=== PATIENT | female | born 1945 | race Caucasian/White ===

== ENCOUNTER → 2018-05-29 11:25 | Outpatient (CLI) | payer OTHER, SELFPAY ==
--- NOTE | 2018-05-29 | DI.MG.S_ITS ---
BILATERAL DIGITAL SCREENING MAMMOGRAM 3D/2D WITH CAD: 05/29/2018 CLINICAL: Routine screening. Comparison is made to exams dated: 11/09/2015 mammogram, 12/26/2012 mammogram, and 05/10/2011 mammogram - [facility]. There are scattered fibroglandular elements in both breasts. Current study was also evaluated with a Computer Aided Detection (CAD) system. No significant masses, calcifications, or other findings are seen in either breast. There has been no significant interval change. IMPRESSION: NEGATIVE There is no mammographic evidence of malignancy. A 1 year screening mammogram is recommended. This exam was interpreted at Station ID: [id number]. NOTE: For mammograms, a report in lay terms will be sent to the patient. Approximately 15% of breast malignancies will not be visualized mammographically. In the management of a palpable breast mass, a negative mammogram must not discourage biopsy of a clinically suspicious lesion. Electronically Signed By: Meliton hernandez/daphne:05/29/2018 17:11:52 letter sent: Normal Exam ACR BI-RADS Category 1: Negative 3341F
== END ==
PROVIDERS: PCP Family Medicine; Visit Provider Family Medicine
DX: Z12.31 Encounter for screening mammogram for malignant neoplasm of breast (principal)
CPT/HCPCS: 77063; 77067

== ENCOUNTER 2019-01-23 11:58 | Day surgery (SDC) | payer OTHER, SELFPAY ==
[2019-01-23] VITALS (7 sets, daily range): BP systolic 112–138; BP diastolic 37–82; PULSE 63–85; RESP 12–16; TEMP 36.1–36.6; O2SAT 93–97; BMI 24.0
--- NOTE | 2019-01-23 | PATH_ITS ---
[facility] Accession Number: [id number] . 01 Material submitted: . sigmoid colon - SIGMOID POLYP . 01 Clinical history: . SCREENING COLONOSCOPY . 02 Diagnosis: Sigmoid Colon, Polyp: Hyperplastic polyp. [facility]/01/24/2019 . 02 Electronically signed: . Camron Reeder MD, PhD, Pathologist NPI- [id number] . 01 Gross description: . SIGMOID POLYP: Received in formalin is 1 fragment(s) of acevedo, soft tissue measuring 0.3 x 0.2 x 0.2 cm which is entirely submitted and submitted entirely in 1 cassette(s) /[facility] /[facility] . 02 Pathologist provided ICD-10: K63.5 . 02 CPT . 386778 Performed at: 01 [facility] [address] [id number] MD Meliton Fish MD Phone: [phone] Performed at: 02 [facility] [address] [place], [place] [id number] MD Karen Thompson MD Phone: [phone]
--- NOTE | 2019-01-23 12:28 | PM.HP.1 ---
History of Present Illness Date Patient Seen: 01/23/19 Time Patient Seen: 12:40 Chief complaint: 12305 SCREENING COLONOSCOPY Narrative: 73yo F for low risk screening colonoscopy. No family history, no alarm symptoms. Last scope 10-12 years ago with no abnormal findings. Meds Home Medications Medication Instructions Recorded Confirmed Type No Known Home Medications 01/23/19 01/23/19 History Allergies Allergy/AdvReac Type Severity Reaction Status Date / Time No Known Drug Allergies Allergy Verified 01/23/19 12:18 Review of Systems Constitutional Constitutional: Reports as per HPI Exam Narrative Exam Narrative: AAO, NAD EOMI, MMM, no scleral icterus unlabored RA soft, nt/nd MAEW visible skin dry and intact Assessment & Plan (1) Screening for colorectal cancer: Current visit: Yes Status: Acute Assessment & Plan narrative: - plan for low risk screening colonoscopy --> all R/B/A discussed and pt wishes to proceed
[2019-01-23] MEDS: SODIUM CHLORIDE 0.9% 1,000 ML 200 ML IV (12:35)
[2019-01-23] MEDS: MIDAZOLAM 5 MG/5 ML VIAL IV (13:15)
[2019-01-23] MEDS: fentaNYL 250 MCG/5 ML INJ IV (13:15)
--- NOTE | 2019-01-23 13:34 | P.OP.ENDO_ITS ---
Operative Date/Time/Diagnoses Date of procedure: 01/23/19 Time of procedure: 13:29 Pre-op diagnosis: Need for screening colonoscopy Post-op diagnosis: same Procedure & Clinicians Study performed: Low risk screening colonoscopy Same procedure as scheduled: Yes Indications: 73yo F for low risk screening colonoscopy. Last scope 10-12 years ago with no abnormal findings. No symptoms. Surgeon: Jayna Bianchi Procedure Notes SCOAP/Timeout: 1250 Procedure in detail: After obtaining informed consent, the patient was brought to the GI suite and placed in the left lateral decubitus position on the examination table. After placement of appropriate monitors, the patient was given incremental doses of Versed and Fentanyl until an appropriate level of sedation was achieved. A time out was held per SCOAP protocol. A digital rectal examination was performed and did not reveal any masses or obstructing lesions but small external hemorrhoids, including a 1cm thrombosed- appearing one, are noted. The pediatric colonoscope was gently passed into the patient's anus and the entire colon navigated to the level of the cecum with minimal difficulty. Prep was adequate. Once in the cecum, the scope was slowly withdrawn being sure to go before and beyond all mucosal folds and prominences as able to get a thorough examination. A 1mm polyp was found and removed for biopsy from the sigmoid colon. Other findings include diverticulosis. At the level of the rectal vault, the scope was retroflexed and the internal anal canal was examined. The scope was straightened and air aspirated from the colon. The instrument was removed from the patient's body and the procedure was concluded. The patient was allowed to awaken from sedation without difficulty and taken to the post-anesthesia care unit in good condition. Scope withdrawal time: 9 min Sedation minutes: 32 Findings: diverticulosis (few, small and scattered, primarily in sigmoid colon), polyp (1mm sigmoid polyp ~20cm, hyperplastic in appearance) and other findings (small thrombosed external hemorrhoid) Specimen(s): other (sigmoid polyp) Complications: none Impression: 1. Few small scattered diverticula 2. Diminutive sigmoid polyp- removed for biopsy 3. Thrombosed external hemorrhoid, small and nontender Recommendations: Colonscopy in 10 years (pending path) and High fiber diet Plan for aftercare: follow up for hemorrhoids Follow up: weeks Disposition: PACU
--- NOTE | 2019-01-23 13:38 | SUR.PHASEI ---
awake, HOB elevated, water given.
--- NOTE | 2019-01-23 13:43 | SUR.PHASEI ---
Tolerating Po well, denies light headedness, passing flatus, denies pain. Preparing for transfer.
== END 2019-01-23 14:20 | disposition home or self-care (01) ==
PROVIDERS: PCP Family Medicine; Visit Provider Surgery
PROC: 0DJD8ZZ Inspection of Lower Intestinal Tract, Via Natural or Artificial Opening Endoscopic (ICD-10-PCS; CPT 45378; principal; 2019-01-23 13:00)
DX: Z12.11 Encounter for screening for malignant neoplasm of colon (principal); K63.5 Polyp of colon; K57.30 Diverticulosis of large intestine without perforation or abscess without bleeding; K64.5 Perianal venous thrombosis
CPT/HCPCS: 45380; 99152; 99153; J2250; J3010

== ENCOUNTER → 2019-02-06 14:10 | Outpatient (CLI) | payer OTHER, SELFPAY | PROVIDERS: PCP Family Medicine; Visit Provider Family Medicine | DX: M85.88 Other specified disorders of bone density and structure, other site (principal); Z78.0 Asymptomatic menopausal state; E55.9 Vitamin D deficiency, unspecified; Z82.62 Family history of osteoporosis | CPT/HCPCS: 77080 ==

== ENCOUNTER → 2019-07-10 08:33 | Outpatient (CLI) | payer OTHER, SELFPAY ==
--- NOTE | 2019-07-10 | DI.MG.S_ITS ---
BILATERAL DIGITAL SCREENING MAMMOGRAM 3D/2D WITH CAD: 07/10/2019 CLINICAL: Routine screening. Comparison is made to exams dated: 05/29/2018 mammogram, 11/09/2015 mammogram, and 12/26/2012 mammogram - [facility]. There are scattered fibroglandular elements in both breasts. Current study was also evaluated with a Computer Aided Detection (CAD) system. No significant masses, calcifications, or other findings are seen in either breast. There has been no significant interval change. IMPRESSION: NEGATIVE There is no mammographic evidence of malignancy. A 1 year screening mammogram is recommended. This exam was interpreted at Station ID: [id number]. NOTE: For mammograms, a report in lay terms will be sent to the patient. Approximately 15% of breast malignancies will not be visualized mammographically. In the management of a palpable breast mass, a negative mammogram must not discourage biopsy of a clinically suspicious lesion. Electronically Signed By: Leonie garcia/daphne:07/10/2019 11:19:27 letter sent: Normal Exam ACR BI-RADS Category 1: Negative 3341F
== END ==
PROVIDERS: PCP Family Medicine; Visit Provider Family Medicine
DX: Z12.31 Encounter for screening mammogram for malignant neoplasm of breast (principal)
CPT/HCPCS: 77063; 77067

== ENCOUNTER → 2020-09-13 17:35 | Outpatient (CLI) | payer OTHER, SELFPAY ==
--- NOTE | 2020-09-13 | DI.MG.S_ITS ---
BILATERAL DIGITAL SCREENING MAMMOGRAM 3D/2D WITH CAD: 09/13/2020 CLINICAL: Routine screening. Comparison is made to exams dated: 07/10/2019 mammogram, 05/29/2018 mammogram, and 11/09/2015 mammogram - [facility]. There are scattered fibroglandular elements in both breasts. Current study was also evaluated with a Computer Aided Detection (CAD) system. There is a stable benign focal asymmetry in the left breast. No significant masses, calcifications, or other findings are seen in either breast. There has been no significant interval change. IMPRESSION: BENIGN There is no mammographic evidence of malignancy. A 1 year screening mammogram is recommended. This exam was interpreted at Station ID: [id number]. NOTE: For mammograms, a report in lay terms will be sent to the patient. Approximately 15% of breast malignancies will not be visualized mammographically. In the management of a palpable breast mass, a negative mammogram must not discourage biopsy of a clinically suspicious lesion. Electronically Signed By: Gordo Hudson acr/:09/14/2020 08:30:43 letter sent: Normal Exam ACR BI-RADS Category 2: Benign Finding(s) 3342F
== END ==
PROVIDERS: PCP Family Medicine; Referring Provider Family Medicine; Visit Provider Family Medicine
DX: Z12.31 Encounter for screening mammogram for malignant neoplasm of breast (principal)
CPT/HCPCS: 77063; 77067

== ENCOUNTER → 2021-04-28 10:42 | Outpatient (CLI) | payer OTHER, SELFPAY | PROVIDERS: PCP Family Medicine; Referring Provider Family Medicine; Visit Provider Family Medicine | DX: M81.0 Age-related osteoporosis without current pathological fracture (principal); Z78.0 Asymptomatic menopausal state; Z82.62 Family history of osteoporosis | CPT/HCPCS: 77080 ==

== ENCOUNTER → 2021-07-15 08:28 | Outpatient (CLI) | payer OTHER, SELFPAY ==
[2021-07-15 11:35] LABS: Alanine Aminotransferase 26 IU/L (<35); Albumin 4.3 g/dL (3.5-5.0); Albumin Globulin Ratio 1.9 (1.0-2.8); Alkaline Phosphatase 52 U/L (38-126); Aspartate Aminotransferase 30 IU/L (14-36); BUN Creatinine Ratio 25.7 (6-22); Bilirubin Total 0.6 mg/dL (0.2-1.3); Blood Urea Nitrogen 18 mg/dL (7-17); Calcium 9.5 mg/dL (8.4-10.2); Carbon Dioxide 30 mmol/L (22-32); Chloride 103 mmol/L (98-107); Cholesterol 145 mg/dL (140-199); Estimated Glomerular Filt Rate > 60.0 mL/min (>60); Globulin 2.3 g/dL (1.7-4.1); Glucose 89 mg/dL (80-110); HDL Cholesterol 59 mg/dL (40-60); HEMOLYSIS < 15 (0-50); LDL Cholesterol Calculated 75 mg/dL (<100); Potassium 3.8 mmol/L (3.4-5.1); Sodium 138 mmol/L (137-145); Total Protein 6.6 g/dL (6.3-8.2); Triglycerides 55 mg/dL (35-150)
[2021-07-15 13:15] LABS: LDL Cholesterol Direct 73 mg/dL (<100)
== END ==
PROVIDERS: PCP Family Medicine; Referring Provider Family Medicine; Visit Provider Family Medicine
DX: E78.5 Hyperlipidemia, unspecified (principal); I10 Essential (primary) hypertension
CPT/HCPCS: 36415; 80053; 80061; 83721

== ENCOUNTER → 2021-12-20 08:15 | Outpatient (CLI) | payer OTHER, SELFPAY ==
--- NOTE | 2021-12-20 | DI.MG.S_ITS ---
BILATERAL DIGITAL SCREENING MAMMOGRAM 3D/2D WITH CAD: 12/20/2021 CLINICAL: Routine screening. Comparison is made to exams dated: 09/13/2020 mammogram, 07/10/2019 mammogram, 05/29/2018 mammogram, and 11/09/2015 mammogram - [facility]. There are scattered fibroglandular elements in both breasts. Current study was also evaluated with a Computer Aided Detection (CAD) system. There is a stable benign focal asymmetry in the left breast. No significant masses, calcifications, or other findings are seen in either breast. There has been no significant interval change. IMPRESSION: BENIGN There is no mammographic evidence of malignancy. A 1 year screening mammogram is recommended. This exam was interpreted at Station ID: [id number]. NOTE: For mammograms, a report in lay terms will be sent to the patient. Approximately 15% of breast malignancies will not be visualized mammographically. In the management of a palpable breast mass, a negative mammogram must not discourage biopsy of a clinically suspicious lesion. Electronically Signed By: Leonie garcia/daphne:12/20/2021 11:47:26 letter sent: Normal Exam ACR BI-RADS Category 2: Benign Finding(s) 3342F
== END ==
PROVIDERS: PCP Family Medicine; Referring Provider Family Medicine; Visit Provider Family Medicine
DX: Z12.31 Encounter for screening mammogram for malignant neoplasm of breast (principal)
CPT/HCPCS: 77063; 77067

== ENCOUNTER → 2022-11-20 10:45 | Outpatient (CLI) | payer OTHER, SELFPAY ==
--- NOTE | 2022-11-20 10:54 | DI.DEXA.S_ITS ---
Bone Density Report Name: FRANKY ARGUETA Age: 77 Sex: Female Ethnicity: White Date of : 1945 Indication: osteopenia; Referring Provider: KIARA MELISSA Study: Bone densitometry was performed. Exam Date: November 20, 2022 Accession number: [id number] Bone Density: Region BMD T-score Z-score Classification AP Spine(L1, L2, L3) 0.753 -2.4 0.0 Osteopenia Femoral Neck (Left) 0.569 -2.5 -0.4 Osteoporosis Total Hip (Left) 0.694 -2.0 -0.2 Osteopenia Femoral Neck (Right) 0.610 -2.2 -0.1 Osteopenia Total Hip (Right) 0.701 -2.0 -0.2 Osteopenia Total Hip Mean 0.697 -2.0 -0.2 Osteopenia World Health Organization criteria for BMD impression classify patients as: Normal (T-score at or above -1.0), Osteopenia (T-score between -1.0 and -2.5), or Osteoporosis (T-score at or below -2.5). 10-year Fracture Risk: FRAX not reported because: Some T-score for Spine Total or Hip Total or Femoral Neck at or below -2.5 Previous Exams: -- Region Exam Age BMD T-score BMD Change BMD Change Date g/cm2 vs Baseline vs Previous -- AP Spine (L1-L3) 11/20/2022 77 0.753 -2.4 -0.004 (-0.6%)# -0.004 (-0.6%)# 04/28/2021 75 0.757 -2.4 Total Hip(Left) 11/20/2022 77 0.694 -2.0 0.000 (0.0%)# 0.000 (0.0%)# 04/28/2021 75 0.694 -2.0 Total Hip(Right) 11/20/2022 77 0.701 -2.0 -0.018 (-2.5%)# -0.018 (-2.5%)# 04/28/2021 75 0.718 -1.8 -- *Denotes significance at 95% confidence level, LSC for AP Spine = 0.022 g/cm2, LSC for Total Hip = 0.027 g/cm2 # Denotes dissimilar scan types or analysis methods Impression: The patient has osteoporosis, based on the Left Femoral Neck T-score. No significant bone loss was observed. Discussion: INCREASED RISK OF FRACTURE. BONE DENSITY IS UNDESIRABLY LOW AT ONE OR MORE SKELETAL SITES, CONSISTENT WITH POSTMENOPAUSAL OSTEOPOROSIS. This patient's lowest T-score meets the World Health Organization's (WHO) criteria for osteoporosis at one or more sites (T-score -2.5 or below). In untreated patients, the risk of osteoporotic fracture increases approximately two-fold for each 1.0 SD decrease in T-score. Low bone density is not the only risk factor for fracture; also consider factors such as patient's age, frailty or poor health, risk of falling, risk of injury, previous osteoporotic fracture, family history of osteoporosis, cigarette smoking, low body weight, etc. Not everyone with low bone mineral density has osteoporosis; osteomalacia and other metabolic bone disorders should also be considered. Patients who have osteoporosis should be evaluated for specific diseases and conditions (secondary causes) that may cause or contribute to bone loss. The [place] [employer]ocr[employer] (AACE) and National Osteoporosis Foundation (NOF) recommend pharmacologic intervention for all postmenopausal women whose T-score is in this range. The patient should follow a healthful lifestyle (good nutrition with adequate calcium and vitamin D, and appropriate weight-bearing exercise). Follow-Up: Consider a repeat BMD and Vertebral Fracture Assessment (VFA) exam in 2 years or sooner if medically necessary, to reassess this patient's status. Reported by: LIN PAGAN MD on 11/20/2022 11:01:00 AM.
== END ==
PROVIDERS: PCP Family Medicine; Referring Provider Family Medicine; Visit Provider Family Medicine
DX: M81.0 Age-related osteoporosis without current pathological fracture (principal)
CPT/HCPCS: 77080

== ENCOUNTER → 2023-04-11 11:03 | Outpatient (CLI) | payer OTHER, SELFPAY ==
--- NOTE | 2023-04-11 11:05 | DI.MG.S_ITS ---
BILATERAL DIGITAL SCREENING MAMMOGRAM 3D/2D WITH CAD: 04/11/2023 CLINICAL: Routine screening. Comparison is made to exams dated: 12/20/2021 mammogram, 09/13/2020 mammogram, and 07/10/2019 mammogram - [facility]. There are scattered areas of fibroglandular density in both breasts (category b / 25%-50% glandular tissue). Current study was also evaluated with a Computer Aided Detection (CAD) system. There is a stable benign focal asymmetry in the left breast. No significant masses, calcifications, or other findings are seen in either breast. There has been no significant interval change. IMPRESSION: BENIGN There is no mammographic evidence of malignancy. A 1 year screening mammogram is recommended. Based on the Tyrer Cuzick model (a risk assessment model) the patient's lifetime risk is 3.5% and her 10 year risk is 3.5%. According to the ACR, ACS, and NCCN guidelines, an annual breast MRI exam along with mammogram is recommended if the patient's lifetime risk is 20% or greater. This exam was interpreted at Station ID: [id number]. NOTE: For mammograms, a report in lay terms will be sent to the patient. Approximately 15% of breast malignancies will not be visualized mammographically. In the management of a palpable breast mass, a negative mammogram must not discourage biopsy of a clinically suspicious lesion. Electronically Signed By: Zack leiva/daphne:04/11/2023 17:23:21 letter sent: Normal Exam ACR BI-RADS Category 2: Benign Finding(s) 3342F
== END ==
PROVIDERS: PCP Family Medicine; Referring Provider Family Medicine; Visit Provider Family Medicine
DX: Z12.31 Encounter for screening mammogram for malignant neoplasm of breast (principal)
CPT/HCPCS: 77063; 77067

== ENCOUNTER → 2024-04-14 14:26 | Outpatient (CLI) | payer OTHER, SELFPAY ==
--- NOTE | 2024-04-14 | DI.MG.S_ITS ---
BILATERAL DIGITAL SCREENING MAMMOGRAM 3D/2D WITH CAD: 04/14/2024 CLINICAL: Routine screening. Comparison is made to exams dated: 12/20/2021 mammogram, 09/13/2020 mammogram, and 04/11/2023 mammogram - [facility]. There are scattered areas of fibroglandular density (category b / 25%-50% glandular tissue). Current study was also evaluated with a Computer Aided Detection (CAD) system. No significant masses, calcifications, or other findings are seen in either breast. There has been no significant interval change. IMPRESSION: NEGATIVE There is no mammographic evidence of malignancy. A 1 year screening mammogram is recommended. Based on the Tyrer Cuzick model (a risk assessment model) the patient's lifetime risk is 3.2% and her 10 year risk is 0.0%. According to the ACR, ACS, and NCCN guidelines, an annual breast MRI exam along with mammogram is recommended if the patient's lifetime risk is 20% or greater. This exam was interpreted at Station ID: [id number]. NOTE: For mammograms, a report in lay terms will be sent to the patient. Approximately 15% of breast malignancies will not be visualized mammographically. In the management of a palpable breast mass, a negative mammogram must not discourage biopsy of a clinically suspicious lesion. Electronically Signed By: Divina Espinoza M.D., Ph.D. mayur/daphne:04/15/2024 09:05:11 letter sent: Normal Exam ACR BI-RADS Category 1: Negative 3341F
== END ==
PROVIDERS: PCP Family Medicine; Referring Provider Family Medicine; Visit Provider Family Medicine
DX: Z12.31 Encounter for screening mammogram for malignant neoplasm of breast (principal)
CPT/HCPCS: 77063; 77067

== ENCOUNTER → 2024-11-04 12:47 | Outpatient (CLI) | payer OTHER, SELFPAY ==
--- NOTE | 2024-11-04 12:48 | DI.RAD.S_ITS ---
PROCEDURE: XR DEXA AXIAL SKELETON INDICATIONS: OSTEOPOROSIS,POSTMENOPAUSAL COMPARISON: [facility], , XR DEXA AXIAL SKELETON, 11/20/2022, 10:54. [facility], CR, XR DEXA AXIAL SKELETON, 04/28/2021, 11:14. FINDINGS: Lumbar Spine: Bone mineral density 0.77 g/cm2, T score -2.3, previously -2.4. Left Femoral Neck: Bone mineral density 0.58 g/cm2, T score -2.4, previously -2.5. Left Hip: Bone mineral density 0.66 g/cm2, T score negative 2.3, previously -2. Fracture Risk Calculation (when applicable): 10-year fracture risk of a major osteoporotic fracture 16 percent and of a hip fracture 5.2 percent. (T score greater or equal to -1.0 to: NORMAL) (T score from -1.1 to -2.4: OSTEOPENIA) (T score less than or equal to -2.5: OSTEOPOROSIS) IMPRESSION: Osteopenia with elevated fracture risk as above. Slightly decreased T-score in the left hip. Follow-up guidelines as follows: Osteoporosis: Consider a repeat DEXA and Vertebral Fracture Assessment (VFA) exam in 2 years or sooner if medically necessary, to reassess this patient's status. Osteopenia: Consider a repeat DEXA in 2-3 years to reassess this patient's status, or if there is a new clinical indication. Normal: Consider a repeat DEXA in 5 years or sooner, or if there is a new clinical indication. All treatment decisions require clinical judgment and consideration of individual patient factors, including patient preferences, comorbidities, previous drug use, risk factors not captured in the FRAX model (e.g., frailty, falls, vitamin D deficiency, increased bone turnover, interval significant decline in bone density ) and possible under- or over-estimation of fracture risk by FRAX. In addition, the NOF Guide recommends that FDA-approved medical therapies be considered in postmenopausal women and men age >= 50 years with a: * Hip or vertebral (clinical or morphometric) fracture * T-score of <=-2.5 at the spine or hip * Ten-year fracture probability by FRAX of >= 3% for hip fracture or >=20% for major osteoporotic fracture. Dictated by: Luis Duffy M.D. on 11/05/2024 at 10:57 Approved by: Luis Duffy M.D. on 11/05/2024 at 10:58
== END ==
PROVIDERS: PCP Family Medicine; Referring Provider Family Medicine; Visit Provider Family Medicine
DX: M81.0 Age-related osteoporosis without current pathological fracture (principal)
CPT/HCPCS: 77080

== ENCOUNTER → 2025-06-22 08:30 | Outpatient (CLI) | payer OTHER, SELFPAY ==
--- NOTE | 2025-06-22 08:30 | DI.MG.S_ITS ---
MM screening mammo BI: 06/22/2025. BI-RADS: 1 CLINICAL: 79-year old female for bilateral screening mammogram. Tyrer-Cuzick lifetime risk of 1.7%. No personal or first-degree family history of breast cancer. PRIOR EXAMS: 04/14/2024, 04/11/2023, 12/20/2021, 09/13/2020, 07/10/2019, 05/29/2018, 11/09/2015. MAMMOGRAPHY TECHNIQUE: 2D and 3D (tomosynthesis) digital mammographic views obtained, with additional images as needed for full coverage. Current study was also evaluated with a Computer Aided Detection (CAD) system. DENSITY B. There are scattered areas of fibroglandular density. MAMMOGRAPHY FINDINGS Bilateral: No suspicious mass, asymmetry, microcalcification, or other abnormality seen. IMPRESSION: * No evidence of malignancy. RECOMMENDATIONS Bilateral * Annual screening mammography. OVERALL ASSESSMENT CATEGORY BI-RADS-1: Negative. The [employer] recommends annual screening mammography beginning at age 40 for women with average risk of breast cancer. ELECTRONICALLY SIGNED: Hetal Oliva M.D. on 06/22/2025 at 10:21:30 PM PT Interpreting Station ID: [id number]
== END ==
LOC: MAMMO 08:30
PROVIDERS: PCP Family Medicine; Referring Provider Family Medicine; Visit Provider Family Medicine
DX: Z12.31 Encounter for screening mammogram for malignant neoplasm of breast (principal)
CPT/HCPCS: 77063; 77067